=== PATIENT | female | born 1955 | race Caucasian/White ===

== ENCOUNTER → 2021-04-17 14:59 | Outpatient (CLI) | payer OTHER, SELFPAY ==
--- NOTE | ~2021-04-17 | MM_ITS ---
EXAMINATION: MM screening kirstin BI w janeth HISTORY: Screening mammogram TECHNIQUE: Craniocaudal and mediolateral oblique 3-D tomosynthesis images were obtained and synthetic 2-D images were generated. CAD analysis was submitted and interpreted. COMPARISON: 12/03/2018, 07/28/2017, 05/30/2016 bilateral screening mammogram examinations BREAST PARENCHYMAL COMPOSITION: There are scattered areas of fibroglandular density. FINDINGS: There is no evidence of suspicious mass, calcification, or architectural distortion to sugg est malignancy in either breast. There has been no suspicious interval change. IMPRESSION: 1. No mammographic evidence of malignancy. 2. Recommend routine screening mammography in one year. BI-RADS Category 1: Negative Reviewed, dictated and finalized at location A. ET OPENINGS INSPECTOR
== END ==
PROVIDERS: PCP Family Medicine; Visit Provider Family Medicine
DX: Z12.31 Encounter for screening mammogram for malignant neoplasm of breast (principal)
CPT/HCPCS: 77063; 77067

== ENCOUNTER → 2021-04-25 17:31 | Outpatient (CLI) | payer OTHER, SELFPAY ==
--- NOTE | ~2021-04-25 | XR_ITS ---
EXAMINATION: XR chest 2V EXAM DATE: 04/25/2021 17:45 INDICATION: R05.9 - Cough, unspecified. Symptoms 3 weeks. TECHNIQUE: Frontal and lateral projections of the chest obtained and reviewed. Comparison is made to prior examination from 08/10/2013. FINDINGS: The lungs are hyperinflated which can be seen with chronic obstructive pulmonary disease (a clinical diagnosis of functional impairment), but is not diagnostic of it. The lungs are clear. T here are no pleural effusions. The cardiomediastinal silhouette is within normal limits. There is n o pneumothorax suspected. The bones and soft tissues are unremarkable. IMPRESSION: 1. No acute cardiopulmonary findings. 2. Hyperinflation. Reviewed, dictated and finalized at location A. PAINTING MACHINE OPERATOR
== END ==
PROVIDERS: PCP Family Medicine; Visit Provider Family Medicine
DX: R05.9 Cough, unspecified (principal); R91.8 Other nonspecific abnormal finding of lung field
CPT/HCPCS: 71046

== ENCOUNTER → 2021-08-13 17:44 | Outpatient (CLI) | payer OTHER, SELFPAY ==
--- NOTE | ~2021-08-13 | DEXA_ITS ---
Bone Density Report Name: RONALD GALLOWAY Age: 66 Sex: Female Ethnicity: White Date of : 1955 Indication: osteopenia; history of glucocorticoids; postmenopausal Referring Provider: BAO BURNETT Study: Bone densitometry was performed. Exam Date: August 13, 2021 Accession number: [id number] Bone Density: Region BMD T-score Z-score Classification AP Spine (L1-L4) 0.914 -1.2 0.5 Osteopenia Femoral Neck (Left) 0.679 -1.5 0.0 Osteopenia Total Hip (Left) 0.767 -1.4 -0.2 Osteopenia Femoral Neck (Right) 0.671 -1.6 -0.1 Osteopenia Total Hip (Right) 0.714 -1.9 -0.7 Osteopenia Total Hip Mean 0.741 -1.7 -0.5 Osteopenia World Health Organization criteria for BMD impression classify patients as: Normal (T-score at or above -1.0), Osteopenia (T-score between -1.0 and -2.5), or Osteoporosis (T-score at or below -2.5). 10-year Fracture Risk(1): Major Osteoporotic Fracture 13% Hip Fracture 1.8% Reported Risk Factors: [place] (), Neck BMD=0.671, BMI=20.7, glucocorticoids (1) FRAX(R) Version 3.08. Fracture probability calculated for an untreated patient. Fracture probability may be lower if the patient has received treatment. Previous Exams: Region Exam Age BMD T-score BMD Change BMD Change Date g/cm2 vs Baseline vs Previous AP Spine(L1-L4) 08/13/2021 66 0.914 -1.2 0.088* 0.027* 12/03/2018 63 0.887 -1.5 0.061* 0.061* 05/30/2016 61 0.826 -2.0 Total Hip(Left) 08/13/2021 66 0.767 -1.4 0.069* 0.011 12/03/2018 63 0.757 -1.5 0.059* 0.059* 05/30/2016 61 0.698 -2.0 Total Hip(Right) 08/13/2021 66 0.714 -1.9 0.001 -0.015 12/03/2018 63 0.729 -1.7 0.016 0.016 05/30/2016 61 0.713 -1.9 *Denotes significance at 95% confidence level, LSC for AP Spine = 0.022 g/cm2, LSC for Total Hip = 0.027 g/cm2 Clinical Information Provided by Patient: Has taken Glucocorticoids Patient maximum height was 64.0 Menopause Age: 59 Drinks caffeinated beverages Onset of menses at age 17 Number of children 2 Impression: The patient has low bone mass, based on the Right Total Hip T-score. The patient has an estimated ten-year risk of hip fracture of 1.8% and an estimated ten-year risk of major fracture of 13%, based on the WHO FRAX algorithm. The patient has risk factors, including: history of glucocorticoid therapy.
== END ==
PROVIDERS: PCP Family Medicine; Visit Provider Family Medicine
DX: Z13.820 Encounter for screening for osteoporosis (principal); Z78.0 Asymptomatic menopausal state; M85.88 Other specified disorders of bone density and structure, other site; M85.852 Other specified disorders of bone density and structure, left thigh; M85.851 Other specified disorders of bone density and structure, right thigh
CPT/HCPCS: 77080

== ENCOUNTER → 2022-12-10 11:52 | Outpatient (CLI) | payer MEDICARE, SELFPAY ==
--- NOTE | ~2022-12-10 | MM_ITS ---
EXAMINATION: MM screening kirstin BI w janeth HISTORY: Screening mammogram TECHNIQUE: Craniocaudal and mediolateral oblique 3-D tomosynthesis images were obtained and synthetic 2-D images were generated. CAD analysis was submitted and interpreted. COMPARISON: 04/17/2021, 12/03/2018, 07/28/2017 bilateral screening mammogram examinations BREAST PARENCHYMAL COMPOSITION: There are scattered areas of fibroglandular density. FINDINGS: There is no evidence of suspicious mass, calcification, or architectural distortion to sugg est malignancy in either breast. There has been no suspicious interval change. IMPRESSION: 1. No mammographic evidence of malignancy. 2. Recommend routine screening mammography in one year. BI-RADS Category 1: Negative Reviewed, dictated and finalized at location L.
== END ==
PROVIDERS: PCP Family Medicine; Visit Provider Family Medicine
DX: Z12.31 Encounter for screening mammogram for malignant neoplasm of breast (principal)
CPT/HCPCS: 77063; 77067

== ENCOUNTER 2024-09-17 14:37 | Outpatient (CLI) | payer MEDICARE, SELFPAY ==
--- NOTE | ~2024-09-17 | XR_ITS ---
EXAMINATION: XR chest 2V 09/17/2024 14:44 INDICATION: Wheezing PROCEDURE: 2 view chest COMPARISON: Comparison to multiple prior studies sequentially, with oldest reviewed study dated 06/07. FINDINGS: The lungs are clear. The lungs are hyperinflated which is consistent with, but not diagnost ic of chronic obstructive pulmonary disease. The cardiomediastinal silhouette is within normal limit s. There are no pleural effusions. There is no pneumothorax suspected. IMPRESSION: 1: NO ACUTE CARDIOPULMONARY DISEASE. Reviewed, dictated and finalized at location A.
[2024-09-17 15:10] LABS: Basophils Absolute Auto 0.1 K/mm3 (0.0-0.1); Basophils Percent Auto 0.7 % (0.2-1.2); Eosinophils Absolute Auto 0.1 K/mm3 (0-0.3); Eosinophils Percent Auto 1.4 % (0-4.4); Hemoglobin 12.9 g/dL (12.0-15.0); Immature Granulocyte Absolute 0.03 K/mm3 (0.00-0.031); Immature Granulocyte Percent A 0.4 % (0-0.5); Lymphocytes Absolute Auto 1.63 K/mm3 (0.9-3.2); Lymphocytes Percent Auto 20.3 % (18.3-44.2); Mean Corpuscular HGB Conc 32.3 g/dl (32-36); Mean Platelet Volume 9.6 fl (7.4-10.4); Monocytes Absolute Auto 0.5 K/mm3 (0.1-0.6); Monocytes Percent Auto 6.2 % (2.6-8.5); Neutrophils Absolute Auto 5.7 K/mm3 (1.3-6.7); Platelet Count Result 281 k/mm3 (150-375); Red Cell Distribution Width 13.1 % (11.5-14.5)
[2024-09-17 15:24] LABS: Alanine Aminotransferase 20 U/L (6-35); Albumin Level 4.3 g/dL (3.5-5.1); Alkaline Phosphatase 77 U/L (38-126); Anion Gap 5 mmol/L (4-12); Aspartate Amino Transferase 28 U/L (14-36); Bilirubin,Total 0.6 mg/dL (0.2-1.3); Blood Urea Nitrogen 14 mg/dL (7-17); Calcium 9.8 mg/dL (8.4-10.2); Carbon Dioxide 33 mmol/L (22-30); Chloride 102 mmol/L (98-107); Estimated Glomerular Filt Rate > 60; Glucose 89 mg/dL (65-110); Sodium 140 mmol/L (137-145)
--- OUTSIDE RECORDS SUMMARY | 2024-09-18 14:27 | XMS_ITS | Encounter Summary ---
Author Organization [facility] Address [address] [facility] [place] [address] Care Team Providers Care Chief Of Field Operations Name Role Phone Park Albert MD Primary Care Provider [phone] Encounter Details Date Type Department Care Team (Late st Contact Info) Description 09/06/2020 Lab Requisition [facility] DermPath Lab [address] [place] [id number] Jatinder Crooks MD [address] [facility] [place] [address] Social History Tobacco Use Types Packs/Day Years Used Date Smoking Tobacco: Never Smokeless Tobacco: Never Alcohol Use Standard Drinks/Week Comments Yes 0 (1 standard drink = 0.6 oz pur e alcohol) Comments Unknown Sex and Gender Information Value Date Recorded Sex Assigned at Not on file Legal Sex Female 5:32 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 Gender Identity Not on file Sexual Orientation Not on file documented as of this encounter Plan of Treatment Not on file documented as of this encounter Procedures Procedure Name Priority Date/Time Associated Diagnosis Comments DERMATOPATHOLOGY Routine 09/04/2020 3:33 AM CDT documented in this encounter Results * DERMATOPATHOLOGY (09/04/2020 3:33 AM CDT) Case Report Dermatopathology Report Case: [id number] Authorizing Provider: Jatinder Crooks MD Collected: 09/04/2020 03:33 AM Ordering Location: [facility] DermPath Lab Received: 09/06/2020 06:39 AM Pathologist: Shazia Packer MD Specimen: Skin, right mid back 2:55 PM CDT DERMATOPATHOLOGY LABORATORY Final Diagnosis Specimen A. SKIN, right mid back: BASAL CELL CARCINOMA, NODULAR TYPE (C44.519) 1 2:55 PM CDT DERMATOPATHOLOGY LABORATORY Clinical History [facility]. Path # [id number]. 2:55 PM CDT DERMATOPATHOLOGY LABORATORY Gross Description Specimen A: Received is one formalin filled container labeled with the patient's name and designated right mid back. The specimen consists of a shave biopsy measuring [id number]. Jar 0. 2:55 PM CDT DERMATOPATHOLOGY LABORATORY Microscopic Description Specimen A. SKIN, right mid back: Within the dermis there are aggregates of basaloid cells with a high nuclear to cytoplasmic ratio and peripheral palisading. 1 2:55 PM CDT DERMATOPATHOLOGY LABORATORY Disclaimer An external and internal positive and negative controls are appropriate for the histochemical, immunohistochemical and immunofluorescence stain(s) in this case (if any), except where stated explicitly. The performance characteristics of the stain(s) cited in this report were developed and its performance characteristic determined by the Dermatopathology Laboratory at [facility], directed by Dr. Luis Armando Packer. These tests need not be, and therefore are not, approved by the [place] Food and Drug Administration. The tests are used for clinical purposes. Billing Codes Specimen Charges Stain Charges 76310 1 1 2:55 PM CDT DERMATOPATHOLOGY LABORATORY Embedded Images 1 2:55 PM CDT DERMATOPATHOLOGY LABORATORY Pathology/Cytolo gy TISSUE SPECIMEN FROM SKIN / Unknown 09/04/2020 3:33 AM CDT 09/06/2020 6:39 AM CDT us Jatinder Crooks MD LAB - PATHOLOGY/CYTOLOGY ORDER LORI Final Result DERMATOPATHOLOGY LABORATORY [facility] - Department of Dermatology [address], [address] [phone] documented in this encounter Visit Diagnoses Not on filedocumented in this encounter Care Teams Chief Of Field Operations Relationship Specialty Start Date End Date Park Albert MD [address] [place] [address] PCP - General 09/05/20 documented as of this encounter
--- OUTSIDE RECORDS SUMMARY | 2024-09-18 14:27 | XMS_ITS | Clinical Summary ---
Author Organization [facility] Address [address] [place] [address] Phone Care Team Providers Care Employment Programs Analyst Name Role Phone Park Albert MD Primary Care Provider [phone] Medications No known medications Active Problems No known active problems Family History Medical History Relation Name Comments Cancer Mother Stroke Mother Relation Name Status Comments Father brain tumor Other Mother Social History Tobacco Use Types Packs/Day Years Used Date Smoking Tobacco: Never Smokeless Tobacco: Never Tobacco Cessation:Counseling Given: No Alcohol Use Standard Drinks/Week Comments Yes 0 (1 standard drink = 0.6 oz pur e alcohol) Comments Unknown Sex and Gender Information Value Date Recorded Sex Assigned at Not on file 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 Gender Identity Not on file Sexual Orientation Not on file Last Filed Vital Signs Vital Sign Reading Time Taken Comments Blood Pressure 109/65 12/14/2021 6:00 PM CDT Pulse 69 12/14/2021 5:50 PM CDT Temperature 36.8 C (98.3 F) 12/14/2021 2:51 PM CDT Respiratory Rate 16 12/14/2021 5:50 PM CDT Oxygen Saturation 100% 12/14/2021 5:50 PM CDT Inhaled Oxygen Concentration - - Weight 55.3 kg (122 lb) 12/14/2021 2:51 PM CDT Height 162.6 cm (5' 4 ) 12/14/2021 2:51 PM CDT Body Mass Index 20.94 12/14/2021 2:51 PM CDT Plan of Treatment Health Maintenance Due Date Last Done Comments DTAP/TDAP/TD VACCINES (1 - Tdap) 01/07/1976 BREAST CANCER SCREENING 1997 COLORECTAL SCREENING 2002 Colorectal Cancer Screening 2002 FIT-DNA Q 3 years 2002 FIT/FOBT Q 1 year 2002 Flex Sig/CT Colonography Q 5 years 2002 PNEUMOCOCCAL VACCINE 50+ YEARS (1 of 1 - PCV) 01/07/20 07 ZOSTER VACCINE (1 of 2) 2007 OSTEOPOROSIS SCREENING 2022 INFLUENZA VACCINE (#1) 2023 RSV VACCINE (60+ or ) (1 - 1-dose 75+ series) 01/07/2032 Insurance [place] [id number] [facility] [id number] Care Teams Employment Programs Analyst Relationship Specialty Start Date End Date Park Albert MD PCP - General Family Practice 12/14/21
--- OUTSIDE RECORDS SUMMARY | 2024-09-18 14:27 | XMS_ITS | Referral Summary ---
Author Organization [facility] Address [address] [facility] [address] [place] [address] Care Team Providers Care Stripper Color Name Role Phone No, Physician Primary Care Provider [phone] Allergies No known active allergies Medications naproxen (ANAPROX DS) 550 mg tablet TK 1 T PO Q 12 H PRN 2 12/17/2018 Active nitrofurantoin monohydrate (MACROBID) 100 mg capsule TK 1 C PO Q 12 H WF 0 02/08/2019 Active Active Problems Problem Noted Date Diagnosed Date Acute cystitis without hematuria 02/11/2019 Postmenopausal atrophic vaginitis 02/11/2019 Polymyalgia 02/11/2019 Headache 03/02/2015 Asymptomatic menopausal state 11/03/2014 Osteoarthritis 11/03/2014 Resolved Problems Problem Noted Date Diagnosed Date Resolved Date Other skilled nursing (current) drug therapy 11/03/2014 02/11/2019 Social History Tobacco Use Types Packs/Day Years Used Date Smoking Tobacco: Never Smokeless Tobacco: Never Alcohol Use Standard Drinks/Week Comments Yes 0 (1 standard drink = 0.6 oz pur e alcohol) AUDIT-C Answer Date Recorded Frequency of Alcohol Consumption 2-4 times a fri02/11/2019 Average Number of Drinks Not on file 019 Frequency of Binge Drinking Not on file 01/18 Comments No Sex and Gender Information Value Date Recorded Sex Assigned at Not on file 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 Gender Identity Not on file Sexual Orientation Not on file Occupation Industry Job Start Date Job End Date Retired Not on file Not on file Not on file Last Filed Vital Signs Vital Sign Reading Time Taken Comments Blood Pressure 126/60 02/10/2019 3:07 PM CDT Pulse - - Temperature - - Respiratory Rate - - Oxygen Saturation - - Inhaled Oxygen Concentration - - Weight 54.4 kg (120 lb) 02/10/2019 3:07 PM CDT Height 160 cm (5' 3 ) 02/10/2019 3:07 PM CDT Body Mass Index 21.26 02/10/2019 3:07 PM CDT Plan of Treatment Not on file Insurance [facility] CHOICE PLUS Care Teams Stripper Color Relationship Specialty Start Date End Date No, Physician PCP - General 01/15/19
--- OUTSIDE RECORDS SUMMARY | 2024-09-18 14:28 | XMS_ITS | Encounter Summary ---
Author Organization [facility] Address 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
--- OUTSIDE RECORDS SUMMARY | 2024-09-18 14:28 | XMS_ITS | Encounter Summary ---
Author Organization [facility] Address [address] [facility] [place] [address] Care Team Providers Care Instructional Systems Designer Name Role Phone Park Albert MD Primary Care Provider [phone] Reason for Visit * Reason Onset Date Comments Encounter Opened In Error 12/17/2023 Encounter Details Date Type Department Care Team (Late st Contact Info) Description 12/17/2023 Telephone [facility] - Centralized Scheduling [address] [place] [id number] Betsey Dowd MD [address] [facility] [address] [place] [address] Encounter Opened In Error Social History Tobacco Use Types Packs/Day Years Used Date Smoking Tobacco: Never Smokeless Tobacco: Never Alcohol Use Standard Drinks/Week Comments Yes 0 (1 standard drink = 0.6 oz pur e alcohol) Comments Unknown Sex and Gender Information Value Date Recorded Sex Assigned at Not on file 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
--- OUTSIDE RECORDS SUMMARY | 2024-09-18 14:28 | XMS_ITS | Clinical Summary ---
Author Organization [facility] Address [address] [facility] [place] [address] Care Team Providers Care Gyroscope Repairer Name Role Phone No, Physician Primary Care Provider [phone] Allergies No known active allergies Medications naproxen [...] Noted Date Diagnosed Date Resolved Date Other nursing home (current) drug therapy 11/03/2014 02/11/2019 Surgical History Surgery Date Site/Laterality Comments SECTION 05/19/1979 - 05/18/1980 SECTION 05/19/1981 - 05/18/1982 ANTERIOR CRUCIATE LIGAMENT REPAIR 05/19/2003 - 4 Family History Medical History Relation Name Comments Brain cancer Father Endometrial cancer Mother Stroke Mother Relation Name Status Comments Father Mother Social History Tobacco Use Types Packs/Day [...] on file 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 Gender Identity Not on file Sexual Orientation Not on file Occupation Industry Job Start Date Job End Date Retired Not on file Not on file Not on file Obstetrics History Para Term AB IAB SAB Ectopic Multiple Livin g Live Births 2 2 2 2 2 Date Outcome GA Total Labor Labor/2nd/3rd Weight Sex Type Anes PTL Adelaide A1 A5 Name Clin 1979 Term 3.714 kg (8 lb 3 oz) F CS-LT ranv Epidura l Livin g Vero e 1981 Term 3.884 kg (8 lb 9 oz) M CS-LT ranv Epidura l Y Livin g Otto Last Filed Vital Signs Vital Sign Reading [...] Plan of Treatment Not on file Insurance [facility] Address: [facility] [address] [place] [address] Care Teams Gyroscope Repairer Relationship Specialty Start Date End Date No, Physician PCP - General 01/15/19
--- OUTSIDE RECORDS SUMMARY | 2024-09-18 14:28 | XMS_ITS | Clinical Summary ---
Author Organization [facility] Address [address] [place] [address] Care Team Providers Care Biomathematician Name Role Phone Unavailable Primary Care Provider Unavailabl e Allergies No known active allergies Medications naproxen (NAPROSYN) 500 MG tablet weekly. 03/18/2022 Active hydrOXYzine (ATARAX) 25 MG tabletIndication s:Anxiety TAKE 1 TABLET BY MOUTH 3 TIMES DAILY NEEDED FOR ITCHING. 90 tablet 2 06/25/2022 Active Active Problems Problem Noted Date Diagnosed Date Acute cystitis without hematuria 02/11/2019 Polymyalgia (HHS/HCC) 02/11/2019 Postmenopausal atrophic vaginitis 02/11/2019 Headache 03/02/2015 Asymptomatic menopausal state 11/03/2014 Encounter for therapeutic drug level monitoring 11/03/2014 Hx of polymyalgia rheumatica 11/03/2014 Osteoarthrosis 11/03/2014 Other long term care phlebotomist (current) drug therapy 5 Other specified abnormal immunological findings in serum 11/03/2014 Pain in joint 11/03/2014 Personal history of other di seases of the musculoskeletal system and connective tissue 11/03/2014 Positive DALTON (antinuclear antibody) 11/03/2014 Family History Medical History Relation Comments brain tremor Father Cancer Mother Stroke Mother Relation Status Comments Father Mother Alive Social History Tobacco Use Types Packs/Day Years Used Date Smoking Tobacco: Never Smokeless Tobacco: Never Tobacco Cessation:Counseling Given: No Alcohol Use Standard Drinks/Week Comments Yes 0 (1 standard drink = 0.6 oz pur e alcohol) PHQ-2 Answer Date Recorded Patient Health Questionnaire-2 Score 0 05/14/2022 Comments No Sex and Gender Information Value Date Recorded Sex Assigned at Not on file Legal Sex Female 12:29 PM HAND ENDBAND CUTTER Gender Identity Not on file Sexual Orientation Not on file Last Filed Vital Signs Vital Sign Reading Time Taken Comments Blood Pressure 108/64 05/14/2022 11:23 AM HAND ENDBAND CUTTER Pulse 52 05/14/2022 11:23 AM HAND ENDBAND CUTTER Temperature 36.6 C (97.8 F) 05/14/2022 11:23 AM HAND ENDBAND CUTTER Respiratory Rate 14 05/14/2022 11:23 AM HAND ENDBAND CUTTER Oxygen Saturation 97% 05/14/2022 11:23 AM HAND ENDBAND CUTTER Inhaled Oxygen Concentration - - Weight 54.9 kg (121 lb) 05/14/2022 11:23 AM HAND ENDBAND CUTTER Height 162.6 cm (5' 4 ) 05/14/2022 11:23 AM HAND ENDBAND CUTTER Body Mass Index 20.77 05/14/2022 11:23 AM HAND ENDBAND CUTTER Plan of Treatment Health Maintenance Due Date Last Done Comments DTaP, Tdap and Td Vaccines ( 1 - Tdap) 01/07/1976 Pneumococcal Vaccine: 50+ Years (1 of 1 - PCV) 2007 Zoster Vaccines (2 of 2) 04/04/2020 02/08/2020 Annual Medicare Wellness Visit 2022 Dexa Scan (General) 2022 Mammogram Screening 05/19/2023 COVID-19 Vaccine (3 - 2023-2 5 season) 2024 09/04/2021, 09/12/2020 Colorectal Cancer Screening Colonoscopy (10 Years) 05/19/2024 PHQ-2 (Physician [place]) 05/19/2024 RSV Immunization or 60+ Years (1 - 1-dose 75+ series) 01/07/2032 Hepatitis C Completed 05/22/2022 Meningococcal B Vaccine Aged Out No l onger eligible based on patient's age to complete this topic Meningococcal Vaccine Aged Out No terrell karie eligible based on patient's age to complete this topic RSV Immunizations Under 20 Months Aged Out No longer eligible b ased on patient's age to complete this topic Procedures Procedure Name Priority Date/Time Associated Diagnosis Comments HEPATITIS C ANTIBODY W/RFX TO HCV RNA 05/22/2022 7:09 AM HAND ENDBAND CUTTER from Last 3 Months or Most Recently Relevant to Health Maintenance Results * HEPATITIS C ANTIBODY W/RFX TO HCV RNA (05/22/2022 7:09 AM HAND ENDBAND CUTTER) HEPATITIS C AB <0.1 0.0 - 0.9 s/co ratio [facility] 1 INTERPRETATION Comment [facility] 1 Comment: Negative Not infected with HCV, unless recent infection is suspected or other evidence exists to indicate HCV infection. 05/22/2022 7:09 AM HAND ENDBAND CUTTER 05/22/2022 Narrative [facility] - 05/23/2022 7:36 AM HAND ENDBAND CUTTER Performed at: 01 - [facility] [address] [id number] Heat Engineering Teacher: Milan Martell MD, Phone: [phone] Sheila Eaton MD LABORATORY Final Result [facility] [address] [place] [address] [facility] 1 from Last 3 Months or Most Recently Relevant to Health Maintenance Insurance [facility]
--- OUTSIDE RECORDS SUMMARY | 2024-09-18 14:28 | XMS_ITS | Clinical Summary ---
Author Organization [facility] Address [address] [place] [address] Care Team Providers Care Flue Dust Laborer Name Role Phone Park Albert MD Primary Care Provider [phone] [phone] Source Comments [facility],non-owned Affiliates and Associated Physician Practices is amultiple site organization consisting of ambulatory clinics and hospital sitesin [place], [place], [place] and [place]. This disclosure is being madepursuant to the Care Everywhere program and may not contain all information available regarding this patient. Last updated 18.[facility] Allergies No known active allergies Medications * Be aware that medications may not be up to date on this document. Alwaysverify current medications with the patient. estradiol (Estrace) 0.1 MG/GM vaginal cream Insert 1g into the vagina nightly for 1 week. Then insert 1g into the vagina two times a week thereafter. 42.5 g 3 01/25/2022 Active Active Problems Problem Noted Date Diagnosed Date Acute cystitis without hematuria 02/11/2019 Polymyalgia 02/11/2019 Postmenopausal atrophic vaginitis 02/11/2019 Headache 03/02/2015 Other chcf (current) drug therapy 5 Osteoarthritis 11/03/2014 Encounter for therapeutic drug level monitoring 11/03/2014 Asymptomatic menopausal state 11/03/2014 Other specified abnormal immunological findings in serum 11/03/2014 Pain in joint 11/03/2014 Personal history of other di seases of the musculoskeletal system and connective tissue 11/03/2014 Hx of polymyalgia rheumatica 11/03/2014 Positive DALTON (antinuclear antibody) 11/03/2014 Family History Medical History Relation Name Comments Cancer Father glioblastoma; S tatus: CVA Maternal Grandmother Cancer Mother endometrium; pe lvic tumor; Status: Alive Kidney Disease Mother single kidney Relation Name Status Comments Father Maternal Grandmother Mother Social History Tobacco Use Types Packs/Day Years Used Date Smoking Tobacco: Never Smokeless Tobacco: Never Alcohol Use Standard Drinks/Week Comments Yes 0 (1 standard drink = 0.6 oz pur e alcohol) Comments Unknown Sex and Gender Information Value Date Recorded Sex Assigned at Not on file Legal Sex Female 5:32 PM FALL INTERN Gender Identity Not on file Sexual Orientation Not on file Last Filed Vital Signs Vital Sign Reading Time Taken Comments Blood Pressure 122/74 01/25/2022 1:18 PM CDT Pulse 58 05/23/2015 3:07 PM FALL INTERN Temperature 36.3 C (97.4 F) 05/23/2015 3:07 PM FALL INTERN Respiratory Rate 14 05/23/2015 3:07 PM FALL INTERN Oxygen Saturation - - Inhaled Oxygen Concentration - - Weight 55.3 kg (122 lb) 01/25/2022 1:18 PM CDT Height 160 cm (5' 3 ) 01/25/2022 1:18 PM CDT Body Mass Index 21.61 01/25/2022 1:18 PM CDT Plan of Treatment Health Maintenance Due Date Last Done Comments BONE DENSITY TESTING 1955 COLOGUARD (AGES 45-75) - COLON CA SCREENING 1955 COLON MONITORING 1955 COLONOSCOPY - COLON CA SCREENING 1957 CT COLONOGRAPHY - COLON CA SCREENING 1955 Colorectal Cancer Screening 1955 FIT - COLON CA SCREENING 1955 FLEX SIG - COLON CA SCREENING 1955 LIPID TESTING 1955 MAMMOGRAM 1955 DTAP/TDAP/TD VACCINES (1 - Tdap) 01/07/1976 PNEUMOCOCCAL VACCINE 50+ (1 of 1 - PCV) 2007 ZOSTER VACCINE (1 of 2) 2007 COVID-19 VACCINE (3 - season) 2024 09/04/2021, 09/12/2020 DEPRESSION SCREENING 05/19/2024 INFLUENZA VACCINE (Season Ended) 2025 02/13/2022, 02/22/2021, 02/21/2020, Additional history exists Respiratory Syncytial Virus (RSV) Vaccine Pt: or over 60 yrs (1 - 1-dose 75+ series) 01/07/2032 HEPATITIS C SCREENING Completed 10/13/2014 HEPATITIS B VACCINE Aged Out No longe r eligible based on patient's age to complete this topic HIB VACCINE Aged Out No longer eligi ble based on patient's age to complete this topic HPV VACCINE Aged Out No longer eligi ble based on patient's age to complete this topic MENINGOCOCCAL (Group B) VACCINE SHARED DECISION-MAKING Aged Out No longer eligible based on patient's age to complete this topic MENINGOCOCCAL GROUPS A/C/Y/W VACCINE Aged Out No longer eligible based on patient's age to complete this topic Procedures Procedure Name Priority Date/Time Associated Diagnosis Comments HEPATITIS SCREEN ACUTE Routine 10/13/2014 12:59 PM CDT from Last 3 Months or Most Recently Relevant to Health Maintenance Results * HEPATITIS SCREEN ACUTE (10/13/2014 12:59 PM CDT) Hepatitis A Virus Antibody IgM Negative Negative [facility] Hepatitis B Virus Surface Antigen Screen Negative Negative [facility]) Hepatitis B Core Virus Antibody IgM Negative Negative [facility] ([facility]) Hepatitis C Virus Antibody <0.1 0.0 - 0.9 s/co ratio [facility] ([facility]) Comment: Negative: < 0.8 Indeterminate: 0.8 - 0.9 Positive: > 0.9 In order to reduce the incidence of a false positive result, the CDC recommends that all s/co ratios between 1.0 and 10.9 be confirmed by a more specific supplemental or PCR testing. [facility] w[facility]Reflex to Verification test #[id number]. Blood specimen (specimen) BLOOD SPECIMEN / Unknown 10/13/2014 12:59 PM CDT 10/13/2014 5:35 PM CDT [facility]ative [facility] - 10/18/2014 7:18 AM CDT Performed at: [address] [place] [id number] Apprentice Plant Attendant: Percy Cantu PhD, Phone: [phone] Specimen Comment: A courtesy copy of this report has been sent to Specimen Comment: the patient. us Keon Boucher MD LAB - CHEMISTRY ORDERABLES Edite d Result - Final [facility]) [address] [place] [address] from Last 3 Months or Most Recently Relevant to Health Maintenance Insurance Care Teams Flue Dust Laborer Relationship Specialty Start Date End Date Park Albert MD [address] [place] [address] PCP - General 09/05/20
== END 2024-09-17 14:38 | disposition home or self-care (01) ==
PROVIDERS: PCP Family Medicine; Visit Provider Student in an Organized Health Care Education/Training Program
DX: R06.2 Wheezing (principal); R53.83 Other fatigue
CPT/HCPCS: 36415; 71046; 80053; 82607; 85025

== ENCOUNTER 2024-10-04 10:03 | Outpatient (CLI) | payer MEDICARE, SELFPAY ==
--- OUTSIDE RECORDS SUMMARY | 2024-10-04 10:38 | XMS_ITS | Patient Health Record ---
Author Organization [facility] Address [address] [place], [place] [address] Care Team Providers Care Roadability Machine Operator Name Role Phone GURWINDER BERG Unavailable [phone] Park Albert Unavailable Unavailable Reason For Referral No Information Plan Of Treatment No Information Insurance Providers Payer Name Payer Address Payer Phone Subscriber Number Group Number Insured Name Patient Relationship to Insured Coverage Start Date Coverage End Date [facility] [address] [address] [place], [place] [id number] EARLENE SILVER Spouse - patient is the spouse of the insured
--- OUTSIDE RECORDS SUMMARY | 2024-10-04 10:38 | XMS_ITS | Patient Health Record ---
Author Organization [facility] Address [address] [facility] [address] [place], [place] [address] Care Team Providers Care Tester Electronic Scale Name Role Phone Sly Albert Primary Care Provider Soy De Jesus Unavailable [phone] Reason For Referral No Information Problems Problem Type SNOMED Code ICD Code Onset Dates Problem Status W/U Status Risk Notes Problem Allergic rhinitis (65398081) Allergic rhinitis, unspecified (J30.9) Active confirmed Problem Chronic sinusitis, unspecified (J32.9) Active confirmed Plan Of Treatment No Information Insurance Providers Payer Name Payer Address Payer Phone Subscriber Number Group Number Insured Name Patient Relationship to Insured Coverage Start Date Coverage End Date AARP Medicare Advantage Complete HMO [address] [address] [place] [address] [id number] Jane BYRNE Self - patient is the insured
--- OUTSIDE RECORDS SUMMARY | 2024-10-04 10:38 | XMS_ITS ---
Author Organization [facility] Address [address] [place], [place] [id number] Care Team Providers Care Carpet Layer Helper Name Role Phone GURWINDER CURTIS Unavailable [phone] Park Albert Unavailable Unavailable REASON FOR VISIT Ft doing better Encounters Encounter Location Date Provider Diagnosis [facility] [place] [address] [place], [place] [address] 04/25/2023 GURWINDER CURTIS Plan Of Treatment No Information Progress Notes * RONALD GALLOWAYDOB:[birth year] (69 yo F)Acc No.[id number]:04/25/2023 Patient: MICA ADAMSONREY Pineda Provider: Chino Curtis DPM :1955 A ge:68 Y S ex:Female Date:04/25/2023 Address:[address] [place], [place] [id number] Subjective: * Chief Complaints: * 1 . Ft doing better. * Medical History: Objective: * Vitals: Assessment: Plan: * Treatment: * Billing Information: * Visit Code: * Procedure Codes: * Electronic signature of GURWINDER CURTIS DPM on 10/04/2024 at 10:38 AM CDT Sign off status: Pending * Provider: Chino Curtis DPM Date: 06/26/2022 Generated for Shraddha gallegos/Ruth/eTransmitting on: 0 10/04/2024 10:38 AM CDT
--- OUTSIDE RECORDS SUMMARY | 2024-10-04 10:38 | XMS_ITS | Referral Summary ---
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
--- OUTSIDE RECORDS SUMMARY | 2024-10-04 10:38 | XMS_ITS | Clinical Summary ---
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
--- OUTSIDE RECORDS SUMMARY | 2024-10-04 10:38 | XMS_ITS | Clinical Summary ---
Author Organization [facility] Address [address] [place] [address] Phone Care Team Providers Care Pocket Cutter Name Role Phone Park Albert MD Primary Care Provider [phone] Medications No known medications Active Problems No [...] on file Legal Sex Female 5:11 AM ELECTRONICS WORKER Gender Identity Not on file Sexual Orientation [...] (1 - 1-dose 75+ series) 01/07/2032 Insurance [place] [id number] [facility] [id number] Care Teams Pocket Cutter Relationship Specialty Start Date End Date Park Albert MD PCP - General Family Practice 12/14/21
--- OUTSIDE RECORDS SUMMARY | 2024-10-04 10:38 | XMS_ITS | Encounter Summary ---
Author Organization [facility] Address [address] [place] [address] Care Team Providers Care Toe Former Stitchdowns Name Role Phone Park Albert MD Primary Care Provider [phone] Encounter Details Date Type Department Care Team (Late st Contact Info) Description 09/06/2020 Lab Requisition [facility] DermPath Lab [address] [facility] [place] [id number] Jatinder Crooks MD [address] [facility] [place] [address] Social History Tobacco Use Types Packs/Day Years Used Date Smoking Tobacco: Never Smokeless Tobacco: Never Alcohol Use Standard Drinks/Week Comments Yes 0 (1 standard drink = 0.6 oz pur e alcohol) Comments Unknown Sex and Gender Information Value Date Recorded Sex Assigned at Not on file Legal Sex Female 5:32 PM PHOTO CHECKER AND ASSEMBLER Gender Identity Not on file Sexual Orientation Not on file documented as of this encounter Plan of Treatment Not on file documented as of this encounter Procedures Procedure Name Priority Date/Time Associated Diagnosis Comments DERMATOPATHOLOGY Routine 09/04/2020 3:33 AM CDT documented in this encounter Results * DERMATOPATHOLOGY (09/04/2020 3:33 AM CDT) Case Report Dermatopathology Report Case: [id number] Authorizing Provider: Jatinder Crooks MD Collected: 09/04/2020 03:33 AM Ordering Location: [facility] DermPath Lab Received: 09/06/2020 06:39 AM Pathologist: Shazia Packer MD Specimen: Skin, right mid back 1 2:55 PM CDT DERMATOPATHOLOGY LABORATORY Final Diagnosis Specimen A. SKIN, right mid back: BASAL CELL CARCINOMA, NODULAR TYPE (C44.519) 1 2:55 PM CDT DERMATOPATHOLOGY LABORATORY at 1455 CDT Clinical History [facility]. Path # [id number]. 1 2:55 PM CDT DERMATOPATHOLOGY LABORATORY Gross Description Specimen A: Received is one formalin filled container labeled with the patient's name and designated right mid back. The specimen consists of a shave biopsy measuring [id number]. Jar 0. 1 2:55 PM CDT DERMATOPATHOLOGY LABORATORY Microscopic Description [...] characteristic determined by the Dermatopathology Laboratory at [facility], directed by Dr. Luis Armando Packer. These tests need not be, and therefore are not, approved by the [place] Food and Drug Administration. The tests are used for clinical purposes. Billing Codes Specimen Charges Stain Charges 05746 1 1 2:55 PM CDT DERMATOPATHOLOGY LABORATORY Embedded Images 1 2:55 PM CDT DERMATOPATHOLOGY LABORATORY Pathology/Cytolo gy TISSUE SPECIMEN FROM SKIN / Unknown 09/04/2020 3:33 AM CDT 09/06/2020 6:39 AM CDT us Jatinder Crooks MD LAB - PATHOLOGY/CYTOLOGY ORDER LOIR Final Result DERMATOPATHOLOGY LABORATORY [facility] - Department of Dermatology [address], [address] [phone] documented in this encounter Visit Diagnoses Not on filedocumented in this encounter Care Teams Toe Former Stitchdowns Relationship Specialty Start Date End Date Park Albert MD [address] [place] [address] PCP - General 09/05/20 documented as of this encounter
--- OUTSIDE RECORDS SUMMARY | 2024-10-04 10:38 | XMS_ITS | Patient Health Record ---
Author Organization [facility] Address [address] [facility] [address] [place] [address] Support Name Relationship Address Phone Jane Mi Guarantor Unknown Unavailab le Allergies No Known Allergies Reason For Referral No Information Medications Medication SIG (Take, Route, Frequency, Duration) Notes Start Date End Date Status citalopram 5 mg not taking on routin e basis *Reorder from [facility]2span for eRx and Interaction Alerts* Active Problems Problem Type SNOMED Code ICD Code Onset Dates Problem Status W/U Status Risk Notes Problem Pain in unspecified joint (M25.50) Active confirmed Plan Of Treatment No Information Insurance Providers Payer Name Payer Address Payer Phone Subscriber Number Group Number Insured Name Patient Relationship to Insured Coverage Start Date Coverage End Date [facility] Choice Plus [address] [address] [place] [address] [id number] Jane Pisano Self - patient is the insured 4 Medical (General) History Surgical History Surgery Date(Month/Year) ACL repair; 2013-08-26 Ceasarean section; 2013-08-26
--- OUTSIDE RECORDS SUMMARY | 2024-10-04 10:38 | XMS_ITS | Clinical Summary ---
Author Organization [facility] Address [address] [place] [address] Care Team Providers Care Plant Nursery Worker Name Role Phone Park Albert MD Primary Care Provider [phone] Source Comments [employer] [facility],non-owned Affiliates and Associated Physician Practices is amultiple site organization consisting of ambulatory clinics and hospital sitesin [place], [place], [place] and [place]. This disclosure is being madepursuant to the Care Everywhere program and may not contain all information available regarding this patient. Last updated 18.[employer] [facility] Allergies No known active allergies Medications * [...] Postmenopausal atrophic vaginitis 02/11/2019 Headache 03/02/2015 Other tracer clerk (current) drug therapy 5 Osteoarthritis 11/03/2014 Encounter [...] on file Legal Sex Female 5:32 PM CARGO INSPECTOR Gender Identity Not on file Sexual Orientation Not on file Last Filed Vital Signs Vital Sign Reading Time Taken Comments Blood Pressure 122/74 01/25/2022 1:18 PM CDT Pulse 58 05/23/2015 3:07 PM CARGO INSPECTOR Temperature 36.3 C (97.4 F) 05/23/2015 3:07 PM CARGO INSPECTOR Respiratory Rate 14 05/23/2015 3:07 PM CARGO INSPECTOR Oxygen Saturation - - Inhaled Oxygen Concentration [...] A Virus Antibody IgM Negative Negative [facility] ([facility]) Hepatitis B Virus Surface Antigen Screen Negative Negative [facility] ([facility]) Hepatitis B Core Virus Antibody IgM Negative Negative [facility] ([facility]) Hepatitis C Virus Antibody <0.1 0.0 - 0.9 s/co ratio [facility] ([facility]) Comment: Negative: < 0.8 Indeterminate: 0.8 - 0.9 Positive: > 0.9 In order to reduce the incidence of a false positive result, the CDC recommends that all s/co ratios between 1.0 and 10.9 be confirmed by a more specific supplemental or PCR testing. [facility] w[facility]Reflex to Verification test #[id number]. Blood specimen (specimen) BLOOD SPECIMEN / Unknown 10/13/2014 12:59 PM CDT 10/13/2014 5:35 PM CDT [facility] - 10/18/2014 7:18 AM CDT Performed at: [address] [place] [id number] [employer] Social Studies Teacher: Percy Cantu PhD, Phone: [phone] Specimen Comment: A courtesy copy of this report has been sent to Specimen Comment: the patient. us Keon Boucher MD LAB - CHEMISTRY ORDERABLES Edite d Result - Final [facility]) [address] [place] [address] from Last 3 Months or Most Recently Relevant to Health Maintenance Insurance Care Teams Plant Nursery Worker Relationship Specialty Start Date End Date Park Albert MD [address] [place] [address] PCP - General 09/05/20
--- OUTSIDE RECORDS SUMMARY | 2024-10-04 10:39 | XMS_ITS | Encounter Summary ---
Author Organization [facility] Address [address] [facility] [place] [address] Care Team Providers Care Client Resource Specialist Name Role Phone Park Albert MD Primary Care Provider [phone] Reason for Visit * Reason Onset Date Comments Encounter Opened In Error 12/17/2023 Encounter Details Date Type Department Care Team (Late st Contact Info) Description 12/17/2023 Telephone [facility] - Centralized Scheduling [address] [place] [id number] Betsey Dowd MD [address] [facility] [address] [place] [address] Encounter Opened In Error Social History Tobacco Use Types Packs/Day Years Used Date Smoking Tobacco: Never Smokeless Tobacco: Never Alcohol Use Standard Drinks/Week Comments Yes 0 (1 standard drink = 0.6 oz pur e alcohol) Comments Unknown Sex and Gender Information Value Date Recorded Sex Assigned at Not on file Legal 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
--- OUTSIDE RECORDS SUMMARY | 2024-10-04 10:39 | XMS_ITS | Encounter Summary ---
Author Organization [employer] Address 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
--- OUTSIDE RECORDS SUMMARY | 2024-10-04 10:39 | XMS_ITS | Clinical Summary ---
Author Organization [facility] Address [address] [place] [address] Care Team Providers Care Motion Study Engineer Name Role Phone Unavailable Primary Care Provider [...] of polymyalgia rheumatica 11/03/2014 Osteoarthrosis 11/03/2014 Other continuous churn buttermaker (current) drug therapy 5 Other specified abnormal [...] on file Legal Sex Female 12:29 PM PRODUCTION TRAINER Gender Identity Not on file Sexual Orientation Not on file Last Filed Vital Signs Vital Sign Reading Time Taken Comments Blood Pressure 108/64 05/14/2022 11:23 AM PRODUCTION TRAINER Pulse 52 05/14/2022 11:23 AM PRODUCTION TRAINER Temperature 36.6 C (97.8 F) 05/14/2022 11:23 AM PRODUCTION TRAINER Respiratory Rate 14 05/14/2022 11:23 AM PRODUCTION TRAINER Oxygen Saturation 97% 05/14/2022 11:23 AM PRODUCTION TRAINER Inhaled Oxygen Concentration - - Weight 54.9 kg (121 lb) 05/14/2022 11:23 AM PRODUCTION TRAINER Height 162.6 cm (5' 4 ) 05/14/2022 11:23 AM PRODUCTION TRAINER Body Mass Index 20.77 05/14/2022 11:23 AM PRODUCTION TRAINER Plan of Treatment Health Maintenance Due Date [...] Screening Colonoscopy (10 Years) 05/19/2024 PHQ-2 (Physician [place]) 05/19/2024 RSV Immunization or 60+ Years (1 [...] W/RFX TO HCV RNA 05/22/2022 7:09 AM PRODUCTION TRAINER from Last 3 Months or Most Recently Relevant to Health Maintenance Results * HEPATITIS C ANTIBODY W/RFX TO HCV RNA (05/22/2022 7:09 AM PRODUCTION TRAINER) HEPATITIS C AB <0.1 0.0 - 0.9 s/co ratio [facility] 1 INTERPRETATION Comment [facility] 1 Comment: Negative Not infected with HCV, unless recent infection is suspected or other evidence exists to indicate HCV infection. 05/22/2022 7:09 AM PRODUCTION TRAINER 05/22/2022 Narrative [facility] - 05/23/2022 7:36 AM PRODUCTION TRAINER Performed at: 01 - [facility] [address] [id number] Clinical Dental Technician: Milan Martell MD, Phone: [phone] Sheila Eaton MD LABORATORY Final Result [facility] [address] [place] [address] [facility] 1 from Last 3 Months or Most Recently Relevant to Health Maintenance Insurance [facility]
--- OUTSIDE RECORDS SUMMARY | 2024-10-04 10:39 | XMS_ITS ---
Author Organization [facility] Address [address] [facility] [address] [place], [place] [id number] Care Team Providers Care Asthma Educator Name Role Phone LashaSly banks Primary Care Provider Soy De Jesus Unavailable [phone] REASON FOR VISIT right side swelling under eyes and side of nose//AT Problems Problem Type SNOMED Code ICD Code Onset Dates Problem Status W/U Status Risk Notes Problem Allergic rhinitis (10736874) Allergic rhinitis, unspecified (J30.9) Active confirmed Problem Chronic sinusitis, unspecified (J32.9) Active confirmed Encounters Encounter Location Date Provider Diagnosis [facility] [place] [id number] [facility] [address] [place], [place] [id number] 04/15/2023 Soy Robison Allergic rhinitis, unspecified J30.9 ; Chronic sinusitis, unspecified J32.9 and Hypertrophy of nasal turbinates J34.3 Assessments Encounter Date Diagnosis (ICD Code) Assessment Notes Treatment Notes Treatment Clinical Notes Section Notes 04/15/2023 Allergic rhinitis, unspecified (ICD-10 - J30.9) Indications for allergy testing include: 1) Confirm suspicion of allergy. 2) Identify offending allergen to determine specific mode of treatment.3) Chronic Rhinosinusits: signs and symptoms are not controlled by avoidance and pharmacotherapy. 4) Asthma: persistent asthma in patient exposed to perennial allergens.5) Suspicion of food allergy. 6) Otitis media, Chronic Rhinitis, atopic dermatitis, Meniere's disease, headache, Pharyngitis, eye symptoms. 7) Patient was informed of risk of anaphylaxis while testing and being treated. A long discussion was had with the patient regarding the treatment options which include avoidance, symptomatic therapy, and immunotherapy. The patient was educated on proper use of nasal spray and the importance of compliance. The patient indicated that they understood. 04/15/2023 Chronic sinusitis, unspecified (ICD-10 - J32.9) The multiple etiologies of chronic sinus disease were discussed with the patient today, including: anatomical obstruction, immune dysfunction, allergies, and vasomotor rhinitis. Some patients have anatomical/mecha nical obstructions which prevent the sinuses from draining properly. Some patients have immune dysfunctions which make them prone to chronic infections. Some patients have a condition called vasomotor rhinitis, which is a condition where the nose reacts to pollutants, colognes, or barometric pressure changes. Some patients may also have underlying allergies which exacerbate or cause their sinus symptoms. All of the above conditions are exacerbated in patients who use tobacco due to the chronic irritant exposure. Also, the patient was told that sinusitis may trigger headaches but not all headaches are sinus related. Each of these possible etiologies will be evaluated during this patient's care. 04/15/2023 Hypertrophy of nasal turbinates (ICD-10 - J34.3) 04/15/2023 Other topical nasal steriods, tristen med sinus rinse, MQT and CT sinuses Plan Of Treatment Treatment Notes Assessment Notes Allergic rhinitis, unspecified Indicatio ns for allergy testing include: 1) Confirm suspicion of allergy. 2) Identify offending allergen to determine specific mode of treatment.3) Chronic Rhinosinusits: signs and symptoms are not controlled by avoidance and pharmacotherapy. 4) Asthma: persistent asthma in patient exposed to perennial allergens.5) Suspicion of food allergy. 6) Otitis media, Chronic Rhinitis, atopic dermatitis, Meniere's disease, headache, Pharyngitis, eye symptoms. 7) Patient was informed of risk of anaphylaxis while testing and being treated. Chronic sinusitis, unspecified The multi ple etiologies of chronic sinus disease were discussed with the patient today, including: anatomical obstruction, immune dysfunction, allergies, and vasomotor rhinitis. Some patients have anatomical/mechanical obstructions which prevent the sinuses from draining properly. Some patients have immune dysfunctions which make them prone to chronic infections. Some patients have a condition called vasomotor rhinitis, which is a condition where the nose reacts to pollutants, colognes, or barometric pressure changes. Some patients may also have underlying allergies which exacerbate or cause their sinus symptoms. All of the above conditions are exacerbated in patients who use tobacco due to the chronic irritant exposure. Also, the patient was told that sinusitis may trigger headaches but not all headaches are sinus related. Each of these possible etiologies will be evaluated during this patient's care. Other topical nasal sterio ds, tristen med sinus rinse, MQT and CT sinuses Procedure Notes * Category Sub-Category Detail Notes Rigid Nasal Endoscopy Preoperative Dx Allergic R hinitis, Chronic Sinusitis Postoperative Dx Same Surgeon Dr. Soy Robison Anesthesia 0.5% Trino-Synephrine on a 1:1 ratio with 4% topical lidocaine sprayed in the nasal passage Complications None Procedure Anterior Rhinoscopy with nasal speculum was limited, could not visualize the middle turbinate adequately, therefore rigid nasal endoscopy was performed., After the patient gave informed consent, the zero-degree Storz SinuScope was insinuated into the right nasal passage. The caudal septum was noted, as well as the septum posteriorly into the nose. Inferior turbinate was examined. The uncinate process area and the middle turbinate were visualized. The middle meatal area was noted as well as the mucous membranes. Nose was examined as posteriorly as possible as tolerated by the patient. After the right side was completed, a similar procedure was carried out on the left side. Anterior nasal exam was incomplete. The following findings were listed:, At the termination of the procedure, this scope was removed and this patient was given postop instructions. Findings Negative for masses or polyps Progress Notes * Pancho CHAOB:1954 (69 yo F)Acc No.[id number]:04/15/2023 Progress Note Patient: Jane GOODWIN Provider: Filippo Robison DO :1955 A ge:68 Y S ex:Female Date:04/15/2023 [facility] Pcp:Sly Albert Subjective: * Chief Complaints: * 1 . right side swelling under eyes and side of nose//AT. * HPI: A llergy: Nasal Congestion d enies. . R hinorrhea d enies. A ge when allergies began C mariaa. H ave you been treated for allergies? N o. Any family members with allergy problems N o. S kin problems N one. E ye problems N one. . E ar problems N one. N robyn problems N one. . T hroat and Mouth problems N one. h istory of asthma N one. S tomach problems N one. Frequency and severity of allergy problems r hailee. S easons when problems are most severe No seasonal pattern. A llergy problems worse...? N othing changes problems. M edications used A ntihistamines, Nasal steroids. H ave you ever been tested for allergies before? N o. I f yes, What type of testing? N o testing. S inusitis: How many infections each year o ne. S inus infections for how many years o ne. H ow long do infections last? < 1 week. H ow many weeks of antibiotics? 2 weeks. D o you feel infections clear with antibiotics y es. O ther problems with sinus infections? n o. H ave you had a recent CT scan or X-ray of your sinsuses n o. * Medical History: Objective: * Vitals: * Examination: H ead: N C/AT, no alopecia. E yes: Eye exam P ERRLA, vision intact bilaterally, EOMI, no ectropion, no scleral hemorrhage, no exophthalmos, No nystagmus. E ar: External ear: n ormal pinnae, Cranial nerves V and VII intact. External Auditory Canal n on-obstructive cerumen , bilateral. Middle ear: T Ms intact, middle ears clear, no effusion. Tube status: n egative for PE tubes. TM perforation: n egative for perforation. Tgram: n ot performed. Audiogram: n ot done. [place] 512Hz: n ot done. Rhomberg n ot done. N ose: Nasal dorsum: m idline. Septum: m idline, equal airway, no hematoma, no abscess. Inferior turbinates: n ormal pink. Middle turbinates: n ormal pink. Secretions: n one. Foreign body: n one seen. Titus splints n one. O ral/Oropharynx: Normal-Oral/Oropharynx: m ucous membranes moist. Teeth: g ood dentition. FOM: n o lesions. Tongue: n ormal without lesion. Palate: n o lesions, no submucosal cleft, no bifid uvula. Oropharynx: n o erythema or exudate. Tonsils n egative for exudate. mallampati score 0 . voice n ml. larynx u nable to visualize. N lance: Normal Neck: s upple. Trachea: m idline. Thyroid: n o thyromegaly. TMJ: n o crepitance, good joint motion, no popping or clicking. Submandibular Selah n o masses palpated. Parotid Region n o masses palpated. R espiratory: Respiratory Exam B reathing is non-labored, no audible wheezing, no stridor, no use of accessory muscles. Lungs n ot auscultated. C ardiovascular: Cardiovascular Exam P ulses are symmetric, no JVD, no peripheal edema noted. Heart n ot auscultated. L ymphatic: Lymphatic Exam N o neck lymphadenopathy. N eurological: Cranial Nerves: I I-XII grossly intact, no focal deficits noted. Gait: n ormal. Orientation A lert & oriented x3. * Physical Examination: Assessment: * Assessment: 1. A llergic rhinitis, unspecified - J30.9 (Primary) 2 . C hronic sinusitis, unspecified - J32.9 3 . H ypertrophy of nasal turbinates - J34.3 Plan: * Treatment: 2. C hronic sinusitis, unspecified Notes:The multiple etiologies of chronic sinus disease were discussed with the patient today, including: anatomical obstruction, immune dysfunction, allergies, and vasomotor rhinitis. Some patients have anatomical/mechanical obstructions which prevent the sinuses from draining properly. Some patients have immune dysfunctions which make them prone to chronic infections. Some patients have a condition called vasomotor rhinitis, which is a condition where the nose reacts to pollutants, colognes, or barometric pressure changes. Some patients may also have underlying allergies which exacerbate or cause their sinus symptoms. All of the above conditions are exacerbated in patients who use tobacco due to the chronic irritant exposure. Also, the patient was told that sinusitis may trigger headaches but not all headaches are sinus related. Each of these possible etiologies will be evaluated during this patient's care. 3. O thers Notes:topical nasal steriods, tristen med sinus rinse, MQT and CT sinuses * Procedures: R igid Nasal Endoscopy: Preoperative Dx A llergic Rhinitis, Chronic Sinusitis. P ostoperative Dx S blanco. S urgeon Werner Robison. A nesthesia 0 .5% Trino-Synephrine on a 1:1 ratio with 4% topical lidocaine sprayed in the nasal passage. C omplications None. P rocedure A nterior Rhinoscopy with nasal speculum was limited, could not visualize the middle turbinate adequately, therefore rigid nasal endoscopy was performed., After the patient gave informed consent, the zero-degree Storz SinuScope was insinuated into the right nasal passage. The caudal septum was noted, as well as the septum posteriorly into the nose. Inferior turbinate was examined. The uncinate process area and the middle turbinate were visualized. The middle meatal area was noted as well as the mucous membranes. Nose was examined as posteriorly as possible as tolerated by the patient. After the right side was completed, a similar procedure was carried out on the left side. Anterior nasal exam was incomplete. The following findings were listed:, At the termination of the procedure, this scope was removed and this patient was given postop instructions.. F indings N egative for masses or polyps. * * Electronic signature of Fletcher Robison DO, [id number] on 10/04/2024 at 10:39 AM CDT Sign off status: Pending * Provider: Filippo Robison DO Date: 1 06/15/2022 Generated for Shraddha gallegos/Ruth/Susan on: 0 10/04/2024 10:39 AM CDT History and Physical Notes * HPI (History of Present Illness) Category Sub-Category Detail Notes Category Not es Allergy Rhinorrhea denies Age when allergies began Childhood Have you been treated for allergies? No Any family members with allergy problems No Skin problems None Ear problems None Throat and Mouth problems None history of asthma None Stomach problems None Frequency and severity of allergy proble ms rarely Seasons when problems are most severe No seasonal pattern Allergy problems worse...? Nothing long es problems Medications used Antihistamines, Nasa l steroids Have you ever been tested for allergies before? No If yes, What type of testing? No testing Sinusitis How many infections each year one Sinus infections for how many years one How long do infections last? <1 week How many weeks of antibiotics? 2 weeks Do you feel infections clear with antibi otics yes Other problems with sinus infections? no Have you had a recent CT scan or X-ray o f your sinsuses no facial pain/pressure Facial congestion/fullness Nasal blockage Runny nose Decreased sense of smell Sinus Headache Bad breath Fatigue (run down feeling) Tooth pain Cough Ear pain/fullness Examination Category Sub-Category Detail Notes Category Not es Ear External ear: normal pinnae, Cranial nerv es V and VII intact Middle ear: TMs intact, middle e ars clear, no effusion Tube status: negative for PE tube s TM perforation: negative for perfora tion Tgram: not performed [place] 512Hz: not done Audiogram: not done Rhomberg not done External Auditory Canal non-obstructive cerumen , bilateral Nose Nasal dorsum: midline Septum: midline, equal airwa y, no hematoma, no abscess Inferior turbinates: normal pink Middle turbinates: normal pink Secretions: none Foreign body: none seen Titus splints none Oral/Oropharynx Normal-Oral/Oropharynx: mucous membran es moist Teeth: good dentition FOM: no lesions Tongue: normal without lesio n Palate: no lesions, no submu cosal cleft, no bifid uvula Oropharynx: no erythema or exuda te Tonsils negative for exudate mallampati score 0 voice nml larynx unable to visualize Neck Normal Neck: supple Trachea: midline Thyroid: no thyromegaly TMJ: no crepitance, good joint motion, no popping or clicking Submandibular Selah no masses palpate d Parotid Region no masses palpated Neurological Cranial Nerves: II-XII grossly intact, no focal deficits noted Gait: normal Orientation Alert & oriented x3 Head NC/AT, no alopecia Eyes Eye exam PERRLA, vision i ntact bilaterally, EOMI, no ectropion, no scleral hemorrhage, no exophthalmos, No nystagmus Cardiovascular Cardiovascular Exam Pulses are s ymmetric, no JVD, no peripheal edema noted Heart not auscultated Respiratory Respiratory Exam Breathing is no n-labored, no audible wheezing, no stridor, no use of accessory muscles Lungs not auscultated Lymphatic Lymphatic Exam No neck lymphadenopathy
--- NOTE | 2024-10-04 16:20 | WPDPFTINT ---
PFT Procedure Performed PFT Procedure Performed Spirometry with Pre/Post Bronchodilator Plethysmography (Lung Vol) Diffusing Cap (DLCO) Flow Vol Loop PFT Interpretation This is a pulmonary function test with pre and post-bronchodilator spirometry, plethysmography and diffusing capacity. The test was performed and results interpreted in accordance with the 2019 and 2005 ATS/ERS Task Force guidelines respectively using the Global Lung Function Initiative-2012 reference equations. Patient demonstrated good effort and cooperation. Reproducibility criteria were met. The quality of the pre bronchodilator spirometry maneuver was Grade U and post bronchodilator spirometry maneuver was Grade D. Of note, patient had repeated difficulty with spirometry maneuver. Findings: Spirometry: The contour of the 1 pre bronchodilator maneuver is not interpretable and only 1 of 4 post bronchodilator maneuver is interpretable and the contour of the inspiratory and expiratory flow tracing are normal in this maneuver. the pre bronchodilator FVC is 2.28 L, 80% predicted. The pre bronchodilator FEV1 is 1.76 L, 79% predicted. The pre bronchodilator FEV1: FVC ratio 77%. The post bronchodilator FVC is 2.82 L, representing a 23% increase. The post bronchodilator FEV1 is 2.24 L, representing a 28% increase. The post bronchodilator FEV1: FVC ratio is 80%. Plethysmography: The total lung capacity is 5.24 L, 107% predicted. The functional residual capacity is 3.63 L, 130% predicted. The residual volume is 2.73 L, 132% predicted. Diffusing capacity: The diffusing capacity unadjusted for hemoglobin and carboxyhemoglobin is 18.5, 91% predicted. The diffusing capacity adjusted for alveolar volume is 4.33, 99% predicted. Impression: The pre bronchodilator spirometry grade is U and should not be used for interpretation. The post bronchodilator spirometry is grade D and is considered suspect for interpretation. Using only the post bronchodilator maneuver, the spirometry is normal without evidence of an obstructive abnormality. Since there are no accurate pre bronchodilator spirometry it is unknown if there is a significant improvement after inhaling a single dose of albuterol. The lung volumes are normal. The diffusing capacity is normal. There are no prior studies for comparison
== END 2024-10-04 10:04 | disposition home or self-care (01) ==
LOC: ANHPFT 10:05
PROVIDERS: PCP Family Medicine; Visit Provider Student in an Organized Health Care Education/Training Program
DX: R09.89 Other specified symptoms and signs involving the circulatory and respiratory systems (principal); R06.2 Wheezing
CPT/HCPCS: 94060; 94726; 94729

== ENCOUNTER 2024-11-16 15:04 | Outpatient (CLI) | payer MEDICARE, SELFPAY ==
--- NOTE | ~2024-11-16 | MM_ITS ---
EXAMINATION: MM screening [facility] BI w janeth HISTORY: Screening mammogram TECHNIQUE: Craniocaudal and mediolateral oblique 3-D tomosynthesis images were obtained and synthetic 2-D images were generated. CAD analysis was submitted and interpreted. COMPARISON: 12/10/2022, 04/17/2021, 12/03/2018 BREAST PARENCHYMAL COMPOSITION:Dense: The breasts are heterogeneously dense, which may obscure small masses. FINDINGS: No suspicious mass, calcification, or architectural distortion are identified in either aimee ast to suggest malignancy. There has been no suspicious interval change. IMPRESSION: No mammographic evidence of malignancy. Recommend routine screening mammography in one year. BI-RADS Category 1: Negative Reviewed, dictated and finalized at location .
== END 2024-11-16 15:05 | disposition home or self-care (01) ==
PROVIDERS: PCP Student in an Organized Health Care Education/Training Program; Visit Provider Student in an Organized Health Care Education/Training Program
DX: Z12.31 Encounter for screening mammogram for malignant neoplasm of breast (principal)
CPT/HCPCS: 77063; 77067

== ENCOUNTER 2024-12-16 13:04 | Outpatient (CLI) | payer MEDICARE, SELFPAY ==
--- NOTE | ~2024-12-16 | DEXA_ITS ---
Bone Density Report Name: RONALD GALLOWAY Age: 69 Sex: Female Ethnicity: White Date of : 1955 Indication: osteopenia; Referring Provider: ADOLPH BUSTILLO Study: Bone densitometry was performed. Exam Date: December 16, 2024 Accession number: [id number] Bone Density: Region BMD T-score Z-score Classification AP Spine(L1-L4) 0.885 -1.5 0.5 Osteopenia Femoral Neck (Left) 0.623 -2.0 -0.4 Osteopenia Total Hip (Left) 0.731 -1.7 -0.3 Osteopenia Femoral Neck (Right) 0.619 -2.1 -0.4 Osteopenia Total Hip (Right) 0.658 -2.3 -0.9 Osteopenia Total Hip Mean 0.694 -2.0 -0.6 Osteopenia World Health Organization criteria for BMD impression classify patients as: Normal (T-score at or above -1.0), Osteopenia (T-score between -1.0 and -2.5), or Osteoporosis (T-score at or below -2.5). 10-year Fracture Risk(1): Major Osteoporotic Fracture 11% Hip Fracture 1.9% Reported Risk Factors: [place] (), Neck BMD=0.623, BMI=21.3 (1) FRAX(R) Version 3.08. Fracture probability calculated for an untreated patient. Fracture probability may be lower if the patient has received treatment. Previous Exams: -- Region Exam Age BMD T-score BMD Change BMD Change Date g/cm2 vs Baseline vs Previous -- AP Spine (L1-L4) 12/16/2024 69 0.885 -1.5 7.2%* -3.1%* 08/13/2021 66 0.914 -1.2 10.6%* 3.0%* 12/03/2018 63 0.887 -1.5 7.4%* 7.4%* 05/30/2016 61 0.826 -2.0 Total Hip(Left) 12/16/2024 69 0.731 -1.7 4.7%* -4.8%* 08/13/2021 66 0.767 -1.4 9.9%* 1.4% 12/03/2018 63 0.757 -1.5 8.4%* 8.4%* 05/30/2016 61 0.698 -2.0 Total Hip(Right) 12/16/2024 69 0.658 -2.3 -7.7%* -7.8%* 08/13/2021 66 0.714 -1.9 0.1% -2.1% 12/03/2018 63 0.729 -1.7 2.2% 2.2% 05/30/2016 61 0.713 -1.9 -- *Denotes significance at 95% confidence level, LSC for AP Spine = 0.022 g/cm2, LSC for Total Hip = 0.027 g/cm2 Clinical Information Provided by Patient: Patient maximum height was 64 Menopause Age: 59 Drinks caffeinated beverages Onset of menses at age 17 Number of children 2 Impression: The patient has low bone mass, based on the Right Total Hip T-score. The patient has an estimated ten-year risk of hip fracture of 1.9% and an estimated ten-year risk of major fracture of 11%, based on the WHO FRAX algorithm. The BMD for the AP Spine (L1-L4) decreased, changing by -3.1% since the last DXA exam. The BMD for the Total Hip(Left) decreased, changing by -4.8% since the last DXA exam. The BMD for the Total Hip(Right) decreased, changing by -7.8% since the last DXA exam. Discussion: BONE DENSITY IS LOW AT ONE OR MORE SKELETAL SITES. This patient's lowest T-score is low at one or more skeletal sites. It meets the World Health Organization's (WHO) criteria for ?low bone mass? (T-score between -1.0 and -2.5). The patient's 10-year risk of fracture as calculated by FRAX is less than the threshold where pharmacological therapy is recommended by the National Osteoporosis Foundation (NOF). However, all treatment decisions require clinical judgment and consideration of individual patient factors, including patient preferences, comorbidities, previous drug use, risk factors not captured in the FRAX model (e.g., frailty, falls, vitamin D deficiency, increased bone turnover, interval significant decline in bone density) and possible under or overestimation of fracture risk by FRAX. The patient should follow a healthful lifestyle (good nutrition with adequate calcium and vitamin D, and appropriate weight-bearing exercise). Follow-Up: Consider repeating this study in 2 years to reassess this patient's status, or sooner if there is some new clinical indication. Reported by: TUAN on 12/16/2024 1:22:00 PM. Reviewed, dictated and finalized at location A.
== END 2024-12-16 13:05 | disposition home or self-care (01) ==
LOC: MICIMG 13:05
PROVIDERS: PCP Family Medicine; Visit Provider Student in an Organized Health Care Education/Training Program
DX: Z78.0 Asymptomatic menopausal state (principal); M85.88 Other specified disorders of bone density and structure, other site; M85.852 Other specified disorders of bone density and structure, left thigh; M85.851 Other specified disorders of bone density and structure, right thigh
CPT/HCPCS: 77080